=== PATIENT | male | born 1995 | race Caucasian/White ===

== ENCOUNTER 2024-03-15 11:45 | Emergency (ER) | payer OTHER, SELFPAY ==
[2024-03-15 11:48] VITALS: BP 137/91
--- NOTE | 2024-03-15 13:51 | ED.GENMED ---
History of Present Illness
General
Chief Complaint: Skin Problem
Source: patient
Exam Limitations: none
Time Seen by Provider: 03/15/24 12:13
Nursing documentation reviewed up to this point in time: agreed with
History of Present Illness
History of Present Illness:
28-year-old male presenting to the emergency department 1 week after getting an appendectomy performed in [place]. Now having a streak up his right arm where he had his IV. Mainly is itchy mildly uncomfortable no fevers no systemic symptoms.
Review of Systems
Review of Systems
Allergies reviewed?: Yes
All Other Systems: ROS reviewed and negative except as documented in HPI and ROS
Phy Exam
Physical Exam
Physical Exam:
GENERAL: Alert , in no apparent distress
EYE: pupils equal and reactive
NECK: Supple, no significant adenopathy.
ENT: o/p clr, mmm.
CARDIAC: Regular rate and rhythm .
LUNGS: Clear breath sounds bilaterally, no acute respiratory distress, no wheezes/rales/rhonchi
ABDOMEN: Soft, without focal tenderness, no r/g, no cvat
NEUROLOGICAL: Alert and oriented, no focal neuro deficits
SKIN: Red streak to the right forearm to the mid forearm no significant tenderness to palpation no fluctuance or induration. Warm and dry, skin intact.
MUSCULOSKELETAL: No edema, well perfused.
PSYCH: Normal and appropriate interaction.
Course
Orders/Labs/Results
Orders:
Orders
03/15/24 12:26
Venous Doppler Upr Ext Right [US Periph Venous UPPER Ext RT] Urgent
Comment:
Reason For Exam: arm swelling after IV last week
Vital Signs
Initial and Last Documented VS:
Initial Vital Signs
Temp Pulse Resp BP Pulse Ox
98.6 F 87 16 137/91 95
03/15/24 11:48 03/15/24 11:48 03/15/24 11:48 03/15/24 11:48 03/15/24 11:48
Last Documented Vital Signs
Temp Pulse Resp BP Pulse Ox
98.6 F 87 16 137/91 95
03/15/24 11:48 03/15/24 11:48 03/15/24 11:48 03/15/24 11:48 03/15/24 11:48
MDM/Problems Addressed
MDM/Problems Addressed:
28-year-old male presenting to the emergency department with concerns of a red streak up his right forearm. Worsening over the past day or 2. Previously an IV in his distal right forearm in [place] when he had an appendectomy. On examination
patient does have redness streaking up his right forearm no tenderness to palpation good distal pulses normal [employer] representative strength good range of motion and strength. Ultrasound was performed that showed superficial thrombophlebitis. He was recommended to
do warm compresses to the area otherwise and follow-up close with the primary care doctor this week. Return precautions given.
*Critical Care Note
Total Time (30-74mins, 75-104mins- exclusive of procedures): Not Applicable
ED Attending Note
-
Portions of this chart may have been created with voice recognition software.� Occasional wrong word or��sound alike� substitutions may have occurred due to the inherent limitations of voice recognition software.
Discharge Plan
Departure
Patient Disposition: Home (Routine Discharge)
Date of Disposition: 03/15/24
Time of Disposition: 15:48
Patient with high blood pressure during this ER visit?: No
Condition: Good
Covid-19: Not Applicable
Discharge Problem:
Superficial thrombophlebitis
Instructions: Superficial vein phlebitis and thrombosis
Referrals:
Gurjit Alvarado PA-C [Family Provider] -
Activity Restrictions/Additional Instructions:
You came to the emergency department today with concerns of the streaking of your right arm. This appears to be a superficial clot. Please use warm compresses and take aspirin daily over the next week and follow-up closely with the primary care
doctor. Return to the emergency department for any worsening, new or concerning symptoms.
Interventions
Interventions:
*Risk Screen - Suicide Last Done: 03/15/24 11:48
*Neglect/Abuse Screening Last Done: 03/15/24 11:48
*ED COVID-19 Vaccine History Last Done: 03/15/24 11:48
Discharge Date and Time
Print Language: ESTONIAN
== END 2024-03-15 16:20 | disposition home or self-care (01) ==
LOC: EMR 11:45
PROVIDERS: EMERGENCY PHYSICIAN Emergency Medicine; FAMILY PHYSICIAN Physician Assistant Medical
DX: T80.1XXA Vascular complications following infusion, transfusion and therapeutic injection, initial encounter (principal); I80.9 Phlebitis and thrombophlebitis of unspecified site; Y83.8 Other surgical procedures as the cause of abnormal reaction of the patient, or of later complication, without mention of misadventure at the time of the procedure; Z98.890 Other specified postprocedural states
CPT/HCPCS: 99284; 93971